=== PATIENT | female | born 1960 | race Asian ===

== ENCOUNTER 2019-01-15 16:08 | Emergency (ER) | payer OTHER ==
[~2019-01-15] VITALS: Ht 157.5 cm; Wt 56.7 kg
[2019-01-15 19:28] VITALS: BP 175/88; TEMP 98.1
[2019-01-16] MEDS ORDERED: HYDR5TAB9 PO (10:52)
== END 2019-01-15 19:30 | disposition home or self-care (01) ==
LOC: ED 16:08
DX: S22.32XA Fracture of one rib, left side, initial encounter for closed fracture (principal); I16.0 Hypertensive urgency; W01.0XXA Fall on same level from slipping, tripping and stumbling without subsequent striking against object, initial encounter
CPT/HCPCS: 96372; 99283; J1885; J2360

== ENCOUNTER 2019-01-16 10:24 | Emergency (ER) | payer OTHER ==
[~2019-01-16] VITALS: Ht 157.5 cm; Wt 56.7 kg
[2019-01-16] MEDS ORDERED: HYDR5TAB9 PO (10:52)
[2019-01-16 11:30] VITALS: BP 141/83; TEMP 97.7
== END 2019-01-16 11:30 | disposition home or self-care (01) ==
LOC: ED 10:24
DX: S22.42XA Multiple fractures of ribs, left side, initial encounter for closed fracture (principal); I10 Essential (primary) hypertension; F17.210 Nicotine dependence, cigarettes, uncomplicated
CPT/HCPCS: 96372; 99282; J1885